=== PATIENT | male | born 1990 | race Caucasian/White ===

== ENCOUNTER 2017-10-16 20:37 | Emergency (ER) | payer SELFPAY ==
[~2017-10-16] VITALS: Ht 172.7 cm; Wt 90.6 kg
[2017-10-16 20:42] VITALS: BP 145/77; PULSE 76; RESP 16; TEMP 98.6; O2SAT 97
[2017-10-16 23:22] VITALS: BP 141/76; PULSE 74; RESP 18; O2SAT 98
--- NOTE | 2017-10-16 23:38 | PD ---
HPI Chief Complaint: GI Complaint Time Seen by Provider: 23:29 Travel History International Travel<30 days: No Contact w/Intl Traveler<30days: No Traveled to known affect area: No History of Present Illness HPI The patient is a 27-year-old male that states she is had decreased appetite, weakness and fatigue with occasional nausea, vomiting and diarrhea since May. The patient denies any fever. He states he may have had hepatitis B but he is not sure about this. He smokes one half pack a day. He has had a mild cough which is nonproductive. He is in no pain now except for some minimal midline epigastric discomfort. [facility] Past Medical History Medical History: Denies Significant Hx Diminished Hearing: No Tetanus Vaccination: Unknown Influenza Vaccination: No Past Surgical History Surgical History: No Previous Surgery Social History Alcohol Use: No Tobacco Use: Yes Substance Use: No Allergies-Medications (Allergen,Severity, Reaction): Coded Allergies: No Known Allergies (Unverified , 10/16/17) Reported Meds & Prescriptions Reported Meds & Active Scripts Active No Active Prescriptions or Reported Medications Review of Systems Except as stated in HPI: all other systems reviewed are Neg Physical Exam Narrative GENERAL: The patient is alert, oriented 3, well hydrated appearing in no apparent distress. He has good color and does not appear anemic. His vital signs show blood pressure 145/77 but are otherwise normal. SKIN: Focused skin assessment warm/dry. No needle tracks nor wrist slash thrasher are noted. HEAD: Atraumatic. Normocephalic. EYES: Pupils equal and round. No scleral icterus. No injection or drainage. ENT: No nasal bleeding or discharge. Mucous membranes pink and moist. NECK: Trachea midline. No JVD. CARDIOVASCULAR: Regular rate and rhythm. No murmur appreciated. RESPIRATORY: No accessory muscle use. Rare wheezes are heard on expiration, otherwise lungs are clear. Breath sounds equal bilaterally. GASTROINTESTINAL: Abdomen soft, with slight tenderness in the midline epigastrium to direct palpation, nondistended. Hepatic and splenic margins not palpable. No guarding or rebound is present. MUSCULOSKELETAL: No obvious deformities. No clubbing. No cyanosis. No edema. NEUROLOGICAL: Awake and alert. No obvious cranial nerve deficits. Motor grossly within normal limits. Normal speech. PSYCHIATRIC: Appropriate mood and affect; insight and judgment normal. Data Data Last Documented VS Vital Signs Date Time Temp Pulse Resp B/P (MAP) Pulse Ox O2 Delivery O2 Flow Rate FiO2 10/17/17 00:31 72 18 136/72 (93) 98 Room Air 10/16/17 20:42 98.6 Orders Orders Complete Blood Count With Diff (10/16/17 23:39) Comprehensive Metabolic Panel (10/16/17 23:39) Lipase (10/16/17 23:39) Urinalysis - C+S If Indicated (10/16/17 23:39) Chest, Pa & Lat (10/16/17 23:39) Labs Laboratory Tests Test 10/16/17 23:40 10/17/17 01:00 White Blood Count 7.1 TH/MM3 Red Blood Count 5.22 MIL/MM3 Hemoglobin 16.1 GM/DL Hematocrit 46.5 % Mean Corpuscular Volume 89.1 FL Mean Corpuscular Hemoglobin 30.8 PG Mean Corpuscular Hemoglobin Concent 34.6 % Red Cell Distribution Width 11.7 % Platelet Count 306 TH/MM3 Mean Platelet Volume 7.6 FL Neutrophils (%) (Auto) 60.1 % Lymphocytes (%) (Auto) 30.1 % Monocytes (%) (Auto) 6.6 % Eosinophils (%) (Auto) 2.8 % Basophils (%) (Auto) 0.4 % Neutrophils # (Auto) 4.3 TH/MM3 Lymphocytes # (Auto) 2.1 TH/MM3 Monocytes # (Auto) 0.5 TH/MM3 Eosinophils # (Auto) 0.2 TH/MM3 Basophils # (Auto) 0.0 TH/MM3 CBC Comment DIFF FINAL Differential Comment Blood Urea Nitrogen 18 MG/DL Creatinine 1.20 MG/DL Random Glucose 96 MG/DL Total Protein 7.0 GM/DL Albumin 3.8 GM/DL Calcium Level 8.5 MG/DL Alkaline Phosphatase 59 U/L Aspartate Amino Transf (AST/SGOT) 24 U/L Alanine Aminotransferase (ALT/SGPT) 36 U/L Total Bilirubin 0.8 MG/DL Sodium Level 139 MEQ/L Potassium Level 3.8 MEQ/L Chloride Level 105 MEQ/L Carbon Dioxide Level 29.4 MEQ/L Anion Gap 5 MEQ/L Estimat Glomerular Filtration Rate 72 ML/MIN Lipase 151 U/L Urine Collection Type CLEAN CATCH Urine Color YELLOW Urine Turbidity CLEAR Urine pH 6.0 Urine Specific [place] GREATER/EQUAL 1.030 Urine Protein NEG mg/dL Urine Glucose (UA) NEG mg/dL Urine Ketones NEG mg/dL Urine Occult Blood NEG Urine Nitrite NEG Urine Bilirubin NEG Urine Urobilinogen 1.0 MG/DL Urine Leukocyte Esterase NEG Urine WBC 0-2 /hpf Urine Squamous Epithelial Cells 0-5 /hpf Urine Bacteria /hpf Urine Mucus OCC /lpf Microscopic Urinalysis Comment CULT NOT INDICATED MDM Medical Decision Making Medical Screen Exam Complete: Yes Emergency Medical Condition: Yes Medical Record Reviewed: Yes Interpretation(s) The CBC is normal. The urinalysis shows specific gravity 1.030 but is otherwise unremarkable. Except for a GFR of 72, the complete metabolic profile is normal. The lipase is normal. Differential Diagnosis Electrolyte disorder, hepatitis, dehydration, anemia Narrative Course The patient does not have any evidence of hepatitis, electrolyte disorder but he does have mild dehydration with respect to the urine specific gravity being high. He should drink more liquids and follow-up with a primary care physician. Diagnosis Primary Impression: Mild dehydration Additional Instructions: As we discussed, drink increased liquids and follow-up with your primary care physician as soon as possible. Med/Other Pt SpecificInfo: No Change to Meds Scripts No Active Prescriptions or Reported Meds Disposition: 01 DISCHARGE HOME Condition: Stable Darek Cantu MD Oct 16, 2017 23:38
[2017-10-16 23:58] LABS: AUTOMATED NEUTROPHIL # 4.3 TH/MM3 (1.8-7.7); BASOPHIL % 0.4 % (0.0-2.0); EOSINOPHIL # 0.2 TH/MM3 (0-0.4); EOSINOPHIL % 2.8 % (0.0-4.0); HEMATOCRIT 46.5 % (39.0-51.0); HEMOGLOBIN 16.1 GM/DL (13.0-17.0); LYMPH % 30.1 % (9.0-44.0); LYMPHOCYTE # 2.1 TH/MM3 (1.0-4.8); MEAN CELL VOLUME 89.1 FL (80.0-100.0); MEAN CORPUSCULAR HEMOGLOBIN 30.8 PG (27.0-34.0); MEAN CORPUSCULAR HGB CONC 34.6 % (32.0-36.0); MEAN PLATELET VOLUME 7.6 FL (7.0-11.0); MONO % 6.6 % (0.0-8.0); MONOCYTE # 0.5 TH/MM3 (0-0.9); NEUT % 60.1 % (16.0-70.0); PLATELET COUNT 306 TH/MM3 (150-450); RED BLOOD COUNT 5.22 MIL/MM3 (4.50-5.90); RED CELL DISTRIBUTION WIDTH 11.7 % (11.6-17.2); WHITE BLOOD COUNT 7.1 TH/MM3 (4.0-11.0)
[2017-10-17 00:18] LABS: CHLORIDE 105 MEQ/L (98-107); SODIUM (NA) 139 MEQ/L (136-145)
[2017-10-17 00:22] LABS: ALBUMIN 3.8 GM/DL (3.4-5.0); BICARBONATE 29.4 MEQ/L (21.0-32.0); BLOOD UREA NITROGEN 18 MG/DL (7-18); CALCIUM 8.5 MG/DL (8.5-10.1); GLUCOSE,RANDOM 96 MG/DL (74-106)
[2017-10-17 00:25] LABS: ALT (GPT) 36 U/L (12-78); AST (GOT) 24 U/L (15-37); GLOMERULAR FILTRATION RATE 72 ML/MIN (>89)
[2017-10-17 00:27] LABS: TOTAL BILIRUBIN ADULT 0.8 MG/DL (0.2-1.0)
[2017-10-17 00:28] LABS: ALKALINE PHOSPHATASE 59 U/L (45-117)
[2017-10-17 00:31] VITALS: BP 136/72; PULSE 72; RESP 18; O2SAT 98
--- NOTE | 2017-10-17 00:40 | RADRPT ---
EXAM DATE/TIME: 10/17/2017 00:28 [facility] COMPARISON: No previous studies available for comparison. INDICATIONS : Cough. MEDICAL HISTORY : None. SURGICAL HISTORY : None. ENCOUNTER: Initial ACUITY: 1 day PAIN SCORE: 0/10 LOCATION: Bilateral chest FINDINGS: PA and lateral views of the chest demonstrate the lungs to be symmetrically aerated without evidence of mass, infiltrate or effusion. The cardiomediastinal contours are unremarkable. Osseous structure s are intact. CONCLUSION: No acute disease. Lencho Bran MD on October 17, 2017 at 0:39 Board Certified Radiologist. This report was verified electronically.
[2017-10-17 01:26] LABS: BILIRUBIN, URINE NEG (NEG); BLOOD, URINE NEG (NEG); GLUCOSE,URINE NEG (NEG); KETONE, URINE NEG (NEG); NITRITE,URINE NEG (NEG); URINE COLOR YELLOW (YELLW/STRAW); URINE LEUKOCYTE ESTERASE NEG (NEG)
[2017-10-17 01:42] LABS: MUCUS URINE OCC /lpf (OCC); SQUAMOUS EPITHELIAL CELL URINE 0-5 /hpf (0-5); WBC, URINE 0-2 /hpf (0-5)
[2017-10-17 02:14] VITALS: BP 132/72; PULSE 74; RESP 18; O2SAT 98
== END 2017-10-17 02:30 | disposition home or self-care (01) ==
LOC: PHED 20:37
DX: E86.0 Dehydration (principal); F17.210 Nicotine dependence, cigarettes, uncomplicated; R05 Cough
CPT/HCPCS: 71046; 80053; 81001; 83690; 85025; 99284